=== PATIENT | male | born 2000 | race Caucasian/White ===

== ENCOUNTER 2019-02-18 13:58 | Emergency (ER) | payer OTHER ==
--- NOTE | 2019-02-18 14:59 | RAD ---
RIGHT FINGER THREE VIEWS: HISTORY: Infection to the third digit of the right hand. FINDINGS: No bony abnormality is seen. No fracture, dislocation, bony destruction or periosteal reaction is marianne ntified. No radiopaque foreign body is seen. No soft tissue air is identified. IMPRESSION: Unremarkable examination. POS: [facility]
== END 2019-02-18 17:42 | disposition home or self-care (01) ==
LOC: ERS 13:58
DX: L03.012 Cellulitis of left finger (principal); L02.512 Cutaneous abscess of left hand
CPT/HCPCS: 26010